=== PATIENT | female | born 1975 | race Two or more races ===

== ENCOUNTER 2017-07-26 16:49 | Inpatient (IN) | payer BC, OTHER ==
[~2017-07-26] VITALS: Ht 157.5 cm; Wt 79.8 kg
[2017-07-26] MEDS ORDERED: SODIUM CHLORIDE 0.9% 1,000 ML IVB ONE (17:43)
[2017-07-26] MEDS ORDERED: ONDANSETRON HCL 4 MG/2 ML VIAL IV ONE (17:45)
[2017-07-26] MEDS ORDERED: MORPHINE SULFATE 8mg/ml INJ SDV IV ONE (17:45)
[2017-07-26] MEDS ORDERED: KETOROLAC TROMETH 30 MG/ML 1ML VIAL IV ONE (17:45)
[2017-07-26 18:27] LABS: Basophils # (auto) 0.1 uL; Basophils % (auto) 0.6 % (0.0-2.0); Eosinophils # (auto) 0.1 uL; Eosinophils % (auto) 0.9 % (0.0-7.0); Hematocrit 47.4 % (36.0-46.0); Hemoglobin 15.8 g/dL (12.2-16.2); Lymphocytes # (auto) 2.7 uL; Lymphocytes % (auto) 20.7 % (10.0-50.0); Mean Corpuscular Hemoglobin 31.5 pg (28.0-32.0); Mean Corpuscular Hgb Conc. 33.3 g/dL (32.0-36.0); Mean Corpuscular Volume 94.6 fL (80.0-100.0); Monocytes # (auto) 0.7 uL; Monocytes % (auto) 5.3 % (0.0-12.0); Neutrophils # (auto) 9.3 uL; Neutrophils % (auto) 72.5 % (37.0-80.0); Nucleated Red Blood Cells % 0.1 %; Platelet Count (auto) 229 10^3/uL (140-450); Red Blood Cells 5.01 10^6/uL (4.0-5.20); Red Cell Distribution Width 13.2 % (11.8-14.3); White Blood Cell 12.9 10^3/uL (4.4-10.8)
[2017-07-26 18:54] LABS: Albumin 3.5 g/dL (3.4-5.0); BUN/Creatinine Ratio 18.1; Calcium 8.8 mg/dL (8.5-10.1); Potassium 4.6 mmol/L (3.5-5.1)
[2017-07-26 18:56] LABS: Bilirubin, Total 0.3 mg/dL (0.2-1.0); Total Protein 8.2 g/dL (6.4-8.2)
[2017-07-26] MEDS: HYDROmorphone HCL 2 MG/ML VL IV ONE ×2 (19:30→20:15)
[2017-07-26] MEDS: ONDANSETRON HCL 4 MG/2 ML VIAL IV ONE ×2 (19:30→20:15)
[2017-07-26 20:15] VITALS: BP 122/68
[2017-07-26] MEDS ORDERED: ONDANSETRON HCL 4 MG/2 ML VIAL IV PRN (21:00)
[2017-07-26] MEDS ORDERED: ACETAMINOPHEN 325 MG TAB PO PRN (21:00)
[2017-07-26] MEDS ORDERED: MORPHINE SULFATE 8mg/ml INJ SDV IV PRN (21:00)
[2017-07-26] MEDS ORDERED: TEMAZEPAM 15 MG CAP PO PRN (21:00)
[2017-07-26] MEDS ORDERED: cefTRIAXone 1GM/10ml IVPUSH 10 ML IV ONE ×2 (21:00→21:08)
[2017-07-26 21:38] LABS: Urine Bacteria MOD /hpf (None Seen); Urine Blood Negative /uL (Negative); Urine Mucus FEW (None Seen); Urine Specific Gravity 1.008 (1.001-1.035); Urine WBC 1 /hpf (0 - 5)
[2017-07-26 22:34] VITALS: BP 122/68
[2017-07-26] MEDS: FAMOTIDINE 20 MG TAB PO SCH (23:18)
[2017-07-26] MEDS: HYDROcodone-ACET 5/325MG TAB PO PRN (23:18)
[2017-07-27] MEDS ORDERED: ACET-1156 PO (04:17)
[2017-07-27 05:13] VITALS: BP 108/53
[2017-07-27 06:08] LABS: Basophils # (auto) 0 uL; Basophils % (auto) 0.5 % (0.0-2.0); Eosinophils # (auto) 0.2 uL; Eosinophils % (auto) 2.3 % (0.0-7.0); Hematocrit 39.6 % (36.0-46.0); Hemoglobin 13.6 g/dL (12.2-16.2); Lymphocytes # (auto) 3.5 uL; Lymphocytes % (auto) 39.7 % (10.0-50.0); Mean Corpuscular Hgb Conc. 34.3 g/dL (32.0-36.0); Mean Corpuscular Volume 90.4 fL (80.0-100.0); Monocytes # (auto) 0.7 uL; Monocytes % (auto) 8.2 % (0.0-12.0); Neutrophils # (auto) 4.4 uL; Neutrophils % (auto) 49.3 % (37.0-80.0); Nucleated Red Blood Cells % 0.1 %; Platelet Count (auto) 226 10^3/uL (140-450); Red Blood Cells 4.38 10^6/uL (4.0-5.20); Red Cell Distribution Width 13.1 % (11.8-14.3); White Blood Cell 8.8 10^3/uL (4.4-10.8)
[2017-07-27 06:17] LABS: BUN/Creatinine Ratio 13.4; Calcium 7.9 mg/dL (8.5-10.1); Potassium 4.1 mmol/L (3.5-5.1)
[2017-07-27 06:21] LABS: Bilirubin, Total 0.1 mg/dL (0.2-1.0); Total Protein 6.6 g/dL (6.4-8.2)
[2017-07-27] MEDS ORDERED: cefTRIAXone 1GM/10ml IVPUSH 10 ML IV SCH (09:00)
[2017-07-27 09:13] VITALS: BP 128/65
[2017-07-27] MEDS: FAMOTIDINE 20 MG TAB PO SCH (09:59)
[2017-07-27] MEDS: HYDROcodone-ACET 5/325MG TAB PO PRN (10:00)
[2017-07-27 13:09] VITALS: BP 107/69
[2017-07-27 15:47] VITALS: BP 107/69
== END 2017-07-27 16:30 | disposition home or self-care (01) | DRG 761 ==
LOC: ER 16:49 → OVERFLOW 16:50 → WEST WING 22:07
PROVIDERS: ADMIT Nurse Practitioner; ATTEND Family Medicine
DX: N83.202 Unspecified ovarian cyst, left side (principal); D72.829 Elevated white blood cell count, unspecified; Z80.0 Family history of malignant neoplasm of digestive organs; Z80.3 Family history of malignant neoplasm of breast; Z83.3 Family history of diabetes mellitus; Z90.710 Acquired absence of both cervix and uterus
CPT/HCPCS: 36415; 74176; 76856; 80053; 81001; 82150; 83690; 85025; 86304; 94761; 96361; 96374; 96375; 96376; J1885; J2405